=== PATIENT | male | born 1980 | race Caucasian/White ===

== ENCOUNTER 2021-09-24 09:33 | Outpatient (CLI) | payer OTHER, SELFPAY ==
--- NOTE | ~2021-09-24 | MR_ITS ---
EXAMINATION: MR knee LT wo con DATE: 09/24/2021 12:58 INDICATION: Left knee pain TECHNIQUE: Magnetic resonance imaging (MRI) of the left knee was performed without intravenous contra st. Sequences included coronal PD-weighted FSE, coronal PD-weighted FS FSE, sagittal T2-weighted FSE , sagittal PD-weighted FS FSE and axial PD weighted fat saturated FSE. COMPARISON: None. FINDINGS: Medial compartment: Medial meniscus is normal. Articular cartilage is normal. Lateral compartment: Lateral meniscus is normal. Articular cartilage is normal. Patellofemoral compartment: Partial-thickness chondral fissuring involving less than 50% the cartilage thickness at the medial pa tellar facet. Small partial-thickness chondral fissure at the inferolateral aspect of the medial troc hlea with tiny underlying central subchondral osteophyte. Ligaments and tendons: Anterior and posterior cruciate ligaments are normal. The medial collateral ligament and fibular lou ateral ligament complex are normal. Mild distal quadriceps tendinopathy. There is also mild tendinopa thy of the proximal patellar tendinopathy with small intrasubstance tear involving the central patell ar attachment of the tendon which measures approximately 7 mm medial to lateral and 5 mm AP and 6 mm proximal to distal. The visualized medial and lateral hamstring tendons as well as the iliotibial ban d are normal. Fluid: Physiologic amount of fluid in the joint space. No loose osteochondral bodies identified. Osseous/other: Normal marrow signal. No fracture or pathologic marrow replacing process. There is edema at the deep suprapatellar fat pad position posterior to the medial patellar facet and which can be seen with fat pad impingement syndrome. IMPRESSION: 1. Mild patellofemoral osteoarthritis with moderate to deep chondral fissuring at the medial patellar facet and medial trochlea. 2. Edema in the medial side of the deep suprapatellar fat pad which can be seen with fat pad impingem ent syndrome. 3. Mild tendinopathy at the distal quadriceps and proximal patellar tendons with small partial-thickn ess intrasubstance tear at the patellar origin of the patellar tendon. Reviewed, dictated and finalized at location A. IMPRESSION: 1. Mild patellofemoral osteoarthritis with moderate to deep chondral fissuring at the medial patellar facet and medial trochlea. 2. Edema in the medial side of the deep suprapatellar fat pad which can be seen with fat pad impingement syndrome. 3. Mild tendinopathy at the distal quadriceps and proximal patellar tendons wit h small partial-thickness intrasubstance tear at the patellar origin of the pat ellar tendon.
== END 2021-09-24 09:34 ==
PROVIDERS: PCP Family Medicine; Visit Provider Orthopaedic Surgery
DX: M25.562 Pain in left knee (principal); M76.52 Patellar tendinitis, left knee; G89.29 Other chronic pain; M17.12 Unilateral primary osteoarthritis, left knee; S76.112A Strain of left quadriceps muscle, fascia and tendon, initial encounter
CPT/HCPCS: 73721

== ENCOUNTER 2021-12-13 00:41 | Day surgery (SDC) | payer OTHER, SELFPAY ==
[2021-12-07 17:13] VITALS: BMI 32.8
--- NOTE | 2021-12-07 17:35 | PC.NURSE ---
Report to the Outpatient Waiting Room, entrance under the green pavilion located off [facility], at 1130 on 12-13-2021. OR Time: 1330. - You and your visitor will be asked a series of questions to screen for COVID 19 for your protection. - Only one visitor is allowed at this time. - The patient visitor is requested to leave or wait in car when not with patient. - A mask is required within the hospital. Patients may have clear liquids (water, carbonated beverages, clear teas, apple juice) until 3 hours prior to surgery with a maximum of 20 ounces. 1030 - No food from midnight until time of surgery - Infants may have breast milk until 4 hours before surgery, formula 6 hours prior to surgery. - Children will be allowed to drink immediately following surgery. If applicable, please bring a bottle or sippy cup to assist with drinking. Juice, water, soda, and popsicles are readily available. For infants on formula, please bring formula the day of surgery. Pacifiers are allowed. Take the following medications with a SIP of water the morning of surgery: meloxicam (per order set); tramadol if needed Medications to discontinue per physician: N/A Please no make-up, nail wolof, hairspray, perfume, deodorant, or body powder the day of surgery. No jewelry (including any body piercings) or valuables the day of surgery, leave them at home. Please take a shower or bath the night before, or the morning of, surgery with an antibacterial soap. Wear comfortable, loose fitting clothing. Children are encouraged to wear pajamas. - Jewelry must be removed prior to entering the operating room. Rings and piercings that are not removed may be cut off. - The hospital will not accept responsibility for valuables. - Please leave all valuables, including medications, at home the day of surgery. If you are going home after surgery, a licensed wedding transportation driver must drive you home. - NO public transportation without another adult. - We recommend that an adult stay with you for 24 hours following discharge. - We also recommend that you do not drive, make important decision, drink alcoholic beverages, or take any drugs that were not prescribed by your health care provider for at least 24 hours after your discharge time. For Pediatric surgeries, we recommend two adults accompany the child home (only one inside the building at this time). Follow any additional instructions given to you from your surgeon. If you or anyone in your household have experienced Covid symptoms in the past week, please notify your surgeon or the nurse liaison at the phone number below for possible testing. Telephone instructions given to Rikki Limon and asked if any additional questions and then verbalized understanding. Patient advised to call surgeon office or pre surgery nurse liaison [phone] if any additional questions.
[2021-12-13] VITALS (8 sets, daily range): BP systolic 105–151; BP diastolic 56–89; PULSE 42–57; RESP 12–20; TEMP 36.2; O2SAT 96–100
[2021-12-13] MEDS: ACETAMINOPHEN 500 MG TABLET 1000 MG PO (09:51)
[2021-12-13] MEDS: KETOROLAC 15 MG/ML VIAL (*BKC) IV PUSH (09:53)
[2021-12-13] MEDS: LACTATED RINGERS 1,000 ML 30 ML IV CONT (09:53)
--- NOTE | 2021-12-13 09:58 | WPDHPUPDATE1 ---
History and Physical Update Update Date/Time: 12/13/21 09:58 History and Physical has been reviewed, including an updated exam of the patient. There are NO changes in the patient's condition. Risks, benefits, and alternatives have been discussed and questions answered. Patient agrees to proceed with procedure.
--- NOTE | 2021-12-13 09:59 | WPDANESEPPF ---
Anes - Initial Pre Proc Eval Procedure: Operation Date: 12/13/21 11:00 Proposed Procedures p Debride Left Patellar Tendon - René Marcial MD Date/Time: 12/13/21 09:59 Surgeon: René Marcial MD Pre Op Diagnosis: chronic left patellar tendonitis Patient Data Age: 41 Gender: M Height: 1.93 m Weight: 126.7 kg Last Vital Signs Temp 36.2 C L 12/13/21 09:20 Pulse 50 L 12/13/21 09:20 Resp 16 12/13/21 09:20 BP 150/82 H 12/13/21 09:20 Pulse Ox 100 12/13/21 09:20 O2 Del Method Room Air 12/13/21 09:20 Allergies Allergy/AdvReac Type Severity Reaction Status Date / Time No Known Allergies Allergy Verified 12/13/21 09:20 Home Medications Medication Instructions Recorded Confirmed Type meloxicam 15 mg tablet 15 mg PO DAILY 12/07/21 12/07/21 History tramadol 50 mg tablet 100 mg PO DAILY PRN pain 12/07/21 12/07/21 History Patient hx anesthesia problems: none Family hx anesthesia problems: none Results Review: All pre-operative results and documents have been reviewed as part of the pre-operative evaluation. [facility] Past Medical History Medical History BMI 32.0-32.9,adult BMI 34.0-34.9,adult Cellulitis of abdominal wall Cellulitis of right foot Chronic bilateral low back pain with bilateral sciatica Chronic low back pain without sciatica Chronic pain of left knee Elevated blood pressure reading in office without diagnosis of hypertension Encounter for prostate cancer screening Encounter for wellness examination in adult Exposure to COVID-19 virus Lumbago with sciatica, right side Mixed hyperlipidemia Patellar tendinitis, left knee Seborrheic keratosis Tinea pedis of right foot Tobacco use disorder, continuous Weight gain Family History Family History Father Hypertension Patient's father is in good health Mother Patient's mother is in good health Grandparent Family history of lung cancer, Onset Age: 87 Family history of primary malignant neoplasm of liver, Onset Age: 91 Social History Social History Smoking packs per day: 1 Smoking cigarettes per day: 20.0 Years smoked: 14 Smoking pack-years: 14.00 Smoking status: Former smoker Tobacco type: cigarettes Second hand tobacco smoke exposure: No Smoking end date: 09/07/20 Alcohol intake: current Drinks per week: 10 Alcohol use details: beer Substance use: current Substance use type: marijuana Other substance usage details: occasionally uses Living arrangements: with family Gender identity (if verbalized by the patient): Male Spiritual care concerns: No Anes - Eval Final PreProcedure Day of Procedure 12/13/21 09:59 Patient weight: obese Heart: regular rate and rhythm Lungs: clear to auscultation Airway: Mallampati scale class II Neurological: alert and oriented Last oral intake: >/= 8 hours ASA classification: III Emergent: no Anesthetic plan: proceed Anesthesia type and monitoring: general LMA Results Review: All pre-operative results and documents have been reviewed as part of the pre-operative evaluation. Informed Consent: The patient's anesthetic plan and its attendant risks and benefits were discussed with the patient/family/POA. Questions were solicited and answers provided to the satisfaction of the patient/family/POA.
[2021-12-13] MEDS: ceFAZolin 3 GM/D5W 100 ML 100 ML IVPB (10:18)
--- NOTE | 2021-12-13 10:59 | W.PM.PROC2 ---
Procedure Note - Detailed Date of Procedure 12/13/21 Pre-op Diagnosis chronic left patellar tendonitis Post-op Diagnosis Same Procedure Performed Debridement left patellar tendon origin Surgeon René Marcial MD [employer] Cristóbal Coy Description of Procedure Patient was identified and proper site identified. He was taken to the operating room transferred to the OR table placing him supine taking care to pad his torso extremities. After general anesthetic induction and intubation, without start trial was placed high in the left thigh. Left lower extremity was prepped and draped in usual sterile fashion. Several cc of 0.5% plain Marcaine was injected into the subcutaneous tissue over the origin of the patellar tendon. Dermis exsanguinated and tourniquet was inflated to 300 millimeters of mercury remaining up for about 8 minutes. Longitudinal incision was made over the distal pole of the patella in patellar tendon origin. Subcutaneous tissue sharply dissected. Bursa was transected in line with the incision allowing for access to the patellar tendon. There is an amorphous area of tendon in the distal pole of the patella. This was excised back to healthier. Tendon tissue and then the area gently curetted. The wound was irrigated with sterile saline. Tendon edges reapproximated in [id number] fashion with 2-0 Vicryl. Tourniquet was released. Hemostasis carried out. Skin reapproximated with 3-0 Quill and tissue adhesive. Sterile dressing was applied. He tolerated procedure well. He was awakened, extubated taken recovery area in stable condition. There were no known intraoperative complications. Estimated blood loss 10 milliliters. He received perioperative antibiotics. Estimated Blood Loss 10 Tourniquet Time 8 Pathology None sent Complications No immediate complications Condition Stable Disposition PACU
== END 2021-12-13 12:42 | disposition home or self-care (01) ==
PROVIDERS: PCP Family Medicine; Visit Provider Orthopaedic Surgery
PROC: (CPT 27680; principal; 2021-12-13 11:00)
DX: M76.52 Patellar tendinitis, left knee (principal); E78.2 Mixed hyperlipidemia; F17.210 Nicotine dependence, cigarettes, uncomplicated; E66.9 Obesity, unspecified; Z68.34 Body mass index [BMI] 34.0-34.9, adult
CPT/HCPCS: 27680; A9270; J0690; J1100; J1885; J2250; J2405; J2704; J3010; J7120

== ENCOUNTER 2021-12-21 10:30 | Outpatient (RCR) | payer OTHER, SELFPAY ==
--- NOTE | 2021-12-15 11:41 | PTOPEVAL ---
PHYSICAL THERAPY INITIAL EVALUATION. Thank you for referring Diego Limon to [facility].? The patient is scheduled to be seen for therapy? 2x/week for 4 weeks. Please review, sign, date and return this plan of care MEL. I agree with and certify that the following plan of care is medically necessary. Referring Physician Date Attending Provider: René Marcial MD *PT Outpatient Evaluation Start: 12/15/21 Evaluation Information Diagnosis Patellar tendinitis s/p debridement Onset 12/13/21 Subjective Information Pt has a history of patellar Query Text:As Reported By Patient/ tendinitis for which he had Family debrided on 12/13/21. His pain has been moderately managed, his pain increases with activity. Pain Assessment Self Report Pain Assessment Left Knee(s) Reported Pain Level 0 Pain Description Stabbing Pain Frequency Acute,Intermittent Lowest Pain Intensity 0 Greatest Pain Intensity 7 Lower Extremity Range of Motion Gross Lower Extremity Range of Motion L knee active -4 - 80 deg Comments R knee active 0-105 sitting EOB active knee extension -25 Lower Extremity Muscle Strength Testing General Lower Extremity Strength WFL/Left,WFL/Right Gross Lower Extremity Strength R LE grossly 5/5 L knee flexion/extension 3/5 Balance Assessment Timed Up and Go Test (TUG) (Seconds) 12 Assistive Devices None 5 Time Sit to Stand Time in Seconds 26 5 Time Sit to Stand Comments with use of UEs, without UEs Query Text:Normative Data: If Greater increased pain beyond Than 15 Seconds, 74% Increase Risk for tolerance Recurrent Falls Gait Assessment Ambulation Assistive Devices Crutches Gait Pattern Antalgic Gait Gait Pattern Observed Decreased Weight Shift - Left, Trunk Lateral Lean - Right Other Gait Observations single crutch held with RUE, mild out toeing with LLE, decreased eccentric quad control during mid stance to terminal stance 2 Minute Walk Total Distance Walked (feet) 325 2 Minute Walk Gait Speed Score (feet/ 2.70 Stair Climbing Assessment Maintains Weight Bearing Status Yes Technique Single Steps Stair Climbing Direction Both Up and Down Stair Climbing Comments Ascend with the R, descend with the L in a non-reciprocal pattern and use of railing. Decreased L knee f
--- NOTE | 2021-12-24 09:29 | PCPTNOTE ---
Patient called & cancelled scheduled appointment this date due to not being able to make it.
--- NOTE | 2021-12-28 09:53 | PCPTNOTE ---
Attending Provider: René Marcial MD Patient:Diego Limon Date of :1980 Patient called this morning and cancelled his remaining appointment. Per referring provider he is doing great and can be discharged from therapy at this time. Patient?s initial visit was on 12/15/2021 10:30 and he had a total of 3 visits. The goals have been met. Thank you for referring this patient to [facility]. Please review, sign, date and return this discharge summary MEL. I have been updated about the patient's current status and I agree with discharge from the above service at this time. Referring Physician Date
== END 2021-12-28 14:39 | disposition home or self-care (01) ==
LOC: ANHPT 10:30
PROVIDERS: PCP Family Medicine; Referring Provider Orthopaedic Surgery; Visit Provider Orthopaedic Surgery
DX: M76.52 Patellar tendinitis, left knee (principal)
CPT/HCPCS: 97110; 97112; 97161; 97530

== ENCOUNTER 2024-10-02 19:49 | Emergency (ER) | payer OTHER, SELFPAY ==
--- NOTE | ~2024-10-02 | XR_ITS ---
XR elbow RT min 3V Ordering provider: ZONIA Tomlinson History: . hit by softball this evening . Comparison: None. FINDINGS: BONES: No acute fracture or dislocation. JOINT SPACES: Normal. SOFT TISSUES: Unremarkable. No definite joint effusion. Ossification of the insertion of the triceps tendon. IMPRESSION: No acute osseous abnormality of the right elbow. Reviewed, dictated and finalized at location A.
[2024-10-02 20:01] VITALS: BP 137/83; PULSE 79; RESP 16; TEMP 36.8; O2SAT 99
--- NOTE | 2024-10-02 20:04 | ED.UPPEXIN ---
HPI - Extremity Injury (Upper) General Chief Complaint: Extremity Injury, Upper Stated Complaint: INJURED R ELBOW Time Seen by Provider: 10/02/24 19:59 Source: patient and RN notes reviewed Mode of arrival: ambulatory Limitations: no limitations History of Present Illness HPI narrative: Patient presents today complaining of a right elbow injury. For hours ago he was struck in the lateral right elbow with softball. 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 States he felt immediate numbness to the arm for approximately 10 minutes before resolving. He currently rates his pain 2/10 at rest, which increases significantly with movement. Related Data Home Medications ?Medication ?Instructions ?Recorded ?Confirmed ?Last Taken ?Type cyanocobalamin (vitamin B-12) 1,000 mcg PO DAILY 07/05/23 04/09/24 Unknown History 1,000 mcg tablet Allergies Allergy/AdvReac Type Severity Reaction Status Date / Time No Known Allergies Allergy Verified 10/02/24 19:55 Review of Systems Review of Systems: CONSTITUTIONAL: Denies body aches, fever, chills, or sweats. EYES: Denies visual changes, redness, or discharge. ENT: Denies rhinorrhea, congestion, sore throat, or otalgia. CARDIOVASCULAR: Denies chest pain, palpitations, or edema. RESPIRATORY: Denies cough or dyspnea. GASTROINTESTINAL: Denies abdominal pain, nausea, vomiting, or diarrhea. GENITOURINARY: Denies dysuria or hematuria. SKIN: Denies rash, itching, or wounds. MUSCULOSKELETAL: Right elbow injury NEUROLOGIC: Denies headache, numbness, tingling, or weakness. PSYCH: Denies depression or anxiety. [facility] Past Medical History Medical History BMI 36.0-36.9,adult BMI 37.0-37.9, adult Vitamin B12 deficiency (12/14/22) level low at 376 with goal greater than 400 with hemoglobin 15.2 and folic acid 14.9 on 12/14/2022. Normal at 492 on 01/24/2024. Essential hypertension Dyslipidemia (high LDL; low HDL) BMI 35.0-35.9,adult Obesity (BMI 30-39.9) Left knee pain Elevated blood pressure reading in office without diagnosis of hypertension BMI 34.0-34.9,adult Cellulitis of abdominal wall Chronic pain of left knee resolved after surgery 12/13/2021. BMI 32.0-32.9,adult Seborrheic keratosis Chronic low back pain without sciatica Mixed hyperlipidemia Total cholesterol 193, HDL 38, triglycerides 141, LDL 130 with ratio of 5.1 on 12/14/2022. Cholesterol 205, triglycerides 127, HDL 42, LDL 138 with ratio 4.9 on 01/24/2024. Exposure to COVID-19 virus Encounter for wellness examination in adult Encounter for prostate cancer screening PSA 0.16 on 12/14/2022. PSA normal at 0.18 on 01/24/2024. Weight gain TSH normal at 2.16 on 01/24/2024. Tinea pedis of right foot Cellulitis of right foot Tobacco use disorder, continuous Quit smoking 09/21/2020 Chronic bilateral low back pain with bilateral sciatica Lumbago with sciatica, right side Surgical History Surgical History Patellar tendinitis, left knee Debridement December 13, 2021 Family History Family History Father Hypertension Patient's father is in good health Mother Patient's mother is in good health Grandparent Family history of lung cancer, Onset Age: 87 Family history of primary malignant neoplasm of liver, Onset Age: 91 Social History Social History Smoking packs per day: 1 Smoking cigarettes per day: 20.0 Years smoked: 14 Smoking pack-years: 14.00 Smoking status: Former smoker Tobacco type: cigarettes Second hand tobacco smoke exposure: No Smoking end date: 09/21/20 Alcohol intake: current Drinks per week: 10 Alcohol use details: beer Substance use: former Lack of Transportation: No Lack of Food: Never True Current Housing: I Have Housing Concerned About Future Housing: No Difficulty Paying Gas/Electric Bills: No Difficulty Paying for Meds: No Currently Unemployed: No Education: Bachelor's Degree Difficulty w/ Childcare or Family Care: No Living arrangements: with family Occupation/Education: occupation Gender identity (if verbalized by the patient): Male Spiritual care concerns: No Comments At time of signature, I have reviewed and agree with nursing past medical, surgical, social and family history unless otherwise noted. Please see nursing chart for further information. There is no relevant family history pertinent to the presenting complaint Exam Narrative: GENERAL: Well-appearing, well-nourished, and in no acute distress. HEAD: Normocephalic, atraumatic. EYES: EOMI. No redness or drainage. Conjunctivae normal. ENT: Mucous membranes pink and moist. NECK: Normal AROM. CHEST: No respiratory distress. EXTREMITIES: Right elbow: Patient has an area of localized edema and ecchymosis to the area of the lateral epicondyle with tenderness. Pain with supination and full extension. Distal sensation intact. Capillary refill normal. Radial pulse normal. Hand railways assistant equal and strong. SKIN: Warm, dry, no rash. Capillary refill normal. Normal skin turgor. NEURO: No focal deficits. Alert and oriented x3. Gait steady. PSYCH: Normal affect. No signs of depression or anxiety. Course Course Level of Care: Express Care Visit Vital Signs Vital signs: Vital Signs Temperature 98.3 F 10/02/24 20:01 Pulse Rate 79 10/02/24 20:01 Respiratory Rate 16 10/02/24 20:01 Blood Pressure 137/83 10/02/24 20:01 Pulse Oximetry 99 10/02/24 20:01 Temperature 98.3 F 10/02/24 20:01 Pulse Rate 79 10/02/24 20:01 Respiratory Rate 16 10/02/24 20:01 Blood Pressure 137/83 10/02/24 20:01 Pulse Oximetry 99 10/02/24 20:01 Reviewed MDM - Extremity Injury (Upper) MDM Narrative Medical decision making narrative: X-rays negative. Recommend conservative treatment for 1 week. If after this period of time symptoms are not improving, recommend PCP or orthopedic follow-up. Patient agrees with plan. Anticipatory guidance given. Differential Diagnosis Differential diagnosis: Likely other (Elbow fracture, contusion) Imaging Data Radiologist's impression: ITS Impressions Elbow X-Ray 10/02/24 20:50 IMPRESSION: No acute osseous abnormality of the right elbow. Critical Care Time Critical Care Time Critical Care Time: No Discharge Plan Discharge Clinical Impression: Contusion of elbow, right Qualifiers: Encounter type: initial encounter Qualified Code(s): S50.01XA - Contusion of right elbow, initial encounter Patient Disposition: Home, Self-Care Condition: Stable Instructions: Contusion in Adults (ED), P.R.I.C.E. Treatment (ED) Additional Instructions: Your x-rays negative for fracture. Elevate and ice the elbow. Take Tylenol for pain. Follow-up with your PCP in 1 week if symptoms are not improving. Your blood pressure was elevated above 120/80 today at Urgent Care. This puts you above the threshold for follow up. Please schedule a followup visit with your personal physician as soon as possible, for further evaluation and treatment. Even blood pressure exceeding 120/80 may indicate pre-hypertension. Patient Language: Chilean Prescriptions: No Action cyanocobalamin (vitamin B-12) 1,000 mcg tablet 1,000 mcg PO DAILY tramadol 50 mg tablet 50 mg PO BID PRN (Reason: pain) Qty: 60 5RF Rx Instructions: take with acetaminophen 325 mg lisinopril 20 mg tablet 20 mg PO DAILY Qty: 30 11RF meloxicam 15 mg tablet 15 mg PO DAILY PRN (Reason: pain) Qty: 90 3RF Follow-up/Referrals: Hemal Hernandez MD [Primary Care Provider] - Time of Disposition: 20:54
== END 2024-10-02 20:55 | disposition home or self-care (01) ==
PROVIDERS: Emergency Provider Nurse Practitioner; PCP Family Medicine
DX: S50.01XA Contusion of right elbow, initial encounter (principal); W21.07XA Struck by softball, initial encounter; Y93.64 Activity, baseball; I10 Essential (primary) hypertension; E78.2 Mixed hyperlipidemia; E53.8 Deficiency of other specified B group vitamins; E66.9 Obesity, unspecified; Z68.35 Body mass index [BMI] 35.0-35.9, adult; Z87.891 Personal history of nicotine dependence
CPT/HCPCS: 73080; 99213; G0463